=== PATIENT | male | born 1980 ===

== ENCOUNTER 2021-09-11 02:57 | Inpatient (IN) | payer SELFPAY ==
[2021-09-11 03:17] VITALS: BMI 21.4
[2021-09-11] MEDS ORDERED: MAG HYDROX/AL HYDROX/SIMETH 30 ML UNIT-DOSE CUP PO PRN (03:51)
[2021-09-11] MEDS ORDERED: BISMUTH SUBSALICYLATE 524 MG/30 ML PO PRN (03:51)
[2021-09-11] MEDS ORDERED: IBUPROFEN 400 MG TABLET (FP) PO PRN (03:51)
[2021-09-11] MEDS ORDERED: BENZOCAINE/MENTHOL (CHLORASEPTIC ) LOZENGE MM PRN (03:51)
[2021-09-11] MEDS ORDERED: IBUPROFEN 600 MG TABLET (FP) PO PRN (03:51)
[2021-09-11] MEDS ORDERED: MAGNESIUM HYDROX 2400MG/30ML ORAL SUSPENSION 30 ML CUP PO PRN (03:51)
[2021-09-11] MEDS ORDERED: MAGNESIUM CITRATE 300 ML BOTTLE PO PRN (03:51)
[2021-09-11] MEDS ORDERED: ACETAMINOPHEN 325 MG TABLET (FP) PO PRN ×2 (03:51)
[2021-09-11] MEDS ORDERED: METHOCARBAMOL 500 MG TABLET PO PRN (03:51)
[2021-09-11] MEDS ORDERED: NICOTINE POLACRILEX 2 MG GUM BUC PRN (03:51)
[2021-09-11] MEDS ORDERED: ONDANSETRON *ODT* 4 MG TABLET SL PRN (03:51)
[2021-09-11] MEDS ORDERED: DICYCLOMINE HCL 10 MG CAPSULE PO PRN (03:51)
[2021-09-11] MEDS ORDERED: LOPERAMIDE HCL 2 MG CAPSULE PO PRN (03:51)
[2021-09-11] MEDS ORDERED: NICOTINE 21 MG/24 HOURS TOPICAL PATCH TD SCH (10:00)
[2021-09-11] MEDS ORDERED: PRENATAL VITAMINS W/ FOLIC ACID TABLET (FP) PO SCH (10:00)
[2021-09-11] MEDS ORDERED: BUPRENORPHINE HCL 150 MCG, BUPRENORPHINE HCL 75 MCG BC PRN (14:41)
[2021-09-11] MEDS ORDERED: BUPRENORPHINE HCL 150 MCG, BUPRENORPHINE HCL 75 MCG BC ONE (14:41)
[2021-09-11] MEDS ORDERED: BUPRENORPHINE HCL 150 MCG FILM BC ONE (15:24)
[2021-09-11] MEDS ORDERED: BUPRENORPHINE HCL 75 MCG FILM BC ONE (15:25)
[2021-09-11 17:04] VITALS: BP 119/66; PULSE 63; TEMP 97.1
[2021-09-11] MEDS ORDERED: cloNIDine HCL 0.1 MG TABLET PO PRN (18:41)
[2021-09-11] MEDS ORDERED: MELATONIN 5 MG TABLETS PO SCH (22:00)
[2021-09-11] MEDS ORDERED: THIAMINE HCL 100 MG TABLET (FP) PO SCH (22:00)
[2021-09-12] MEDS ORDERED: BUPRENORPHINE HCL 150 MCG, BUPRENORPHINE HCL 75 MCG BC PRN
[2021-09-12] MEDS ORDERED: BUPRENORPHINE HCL 150 MCG, BUPRENORPHINE HCL 75 MCG BC SCH (06:00)
[2021-09-13] MEDS ORDERED: BUPRENORPHINE HCL 450 MCG FILM BC PRN
[2021-09-13] MEDS ORDERED: BUPRENORPHINE HCL 450 MCG FILM BC SCH (06:00)
[2021-09-14] MEDS ORDERED: BUPRENORPHINE/NALOXONE 4 MG/1 MG FILM PACKET SL SCH (06:00)
[2021-09-15] MEDS ORDERED: BUPRENORPHINE/NALOXONE 8 MG/2 MG FILM PACKET SL ONE (06:00)
== END 2021-09-11 16:46 | disposition home or self-care (01) | DRG 773 ==
LOC: YASAS 02:57 → Y6N 03:46
PROVIDERS: ADMIT Allergy & Immunology; ATTEND Allergy & Immunology
PROC: HZ2ZZZZ Detoxification Services for Substance Abuse Treatment (ICD-10-PCS; principal; 2021-09-11)
DX: F11.23 Opioid dependence with withdrawal (principal); F14.20 Cocaine dependence, uncomplicated; F17.210 Nicotine dependence, cigarettes, uncomplicated; Z28.310 Unvaccinated for COVID-19
CPT/HCPCS: 93005; 93010; C9803-CS; U0003; U0005